=== PATIENT | female | born 1945 | race Two or more races ===

== ENCOUNTER 2018-08-25 15:22 | Inpatient (IN) | payer MEDICARE, OTHER ==
[~2018-08-25] VITALS: Ht 160 cm; Wt 53.1 kg
[2018-08-25] MEDS ORDERED: CARB1TAB21 PO (15:36)
[2018-08-25] MEDS ORDERED: MONT10TA22 PO (15:36)
[2018-08-25] MEDS ORDERED: GABA600T12 PO (15:36)
[2018-08-25] MEDS ORDERED: GABA-534 PO (15:36)
[2018-08-25] MEDS ORDERED: ACETAMINOPHEN 325 MG TABLET PO ONE (15:45)
[2018-08-25 15:58] LABS: BASOPHILS % (AUTO) 0.3 % (0.0-2.0); EOSINOPHILS % (AUTO) 0.3 % (0.0-7.0); HEMATOCRIT 37.9 % (31.2-41.9); HEMOGLOBIN 12.7 g/dL (10.9-14.3); LYMPHOCYTES # (AUTO) 1.4 K/uL (20.0-40.0); LYMPHOCYTES % (AUTO) 9.8 % (20.5-51.5); MEAN CORPUSCULAR HEMOGLOBIN 31.1 uug (24.7-32.8); MEAN CORPUSCULAR HGB CONC 34 g/dL (32.3-35.6); MEAN CORPUSCULAR VOLUME 92.9 fL (75.5-95.3); MONOCYTES # (AUTO) 1.6 K/uL (2.0-10.0); MONOCYTES % (AUTO) 11.4 % (0.0-11.0); NEUTROPHILS % (AUTO) 78.2 % (38.5-71.5); PLATELET COUNT (AUTO) 216 K/uL (179-408); RED BLOOD CELL COUNT(AUTO) 4.09 MIL/uL (3.63-4.92); WHITE BLOOD COUNT (AUTO) 14.1 K/uL (3.8-11.8)
[2018-08-25] MEDS ORDERED: ACETAMINOPHEN 325 MG TABLET ONE (16:02)
[2018-08-25 16:10] LABS: CARBON DIOXIDE 28 mmol/L (21-32); CHLORIDE 102 mmol/L (98-107); CREATININE 0.9 mg/dL (0.6-1.3); GLUCOSE 108 mg/dL (74-106); POTASSIUM 3.5 mmol/L (3.5-5.1); UREA NITROGEN, BLOOD 15 mg/dL (7-18)
--- NOTE | 2018-08-25 16:10 | NUR ---
PT IS IN ROOM #1A. DR ARANDA EVALUATED THE PT.
[2018-08-25 16:16] LABS: ALANINE AMINOTRANSFERASE 28 U/L (14-59); ALKALINE PHOSPHATASE 94 U/L (50-136); ASPARTATE AMINOTRANSFERASE 28 U/L (15-37); BILIRUBIN,DIRECT 0.2 mg/dL (0.0-0.2); BILIRUBIN,TOTAL 0.7 mg/dL (0.2-1.0); TOTAL PROTEIN, SERUM 7.3 g/dL (6.4-8.2)
[2018-08-25 16:22] LABS: ACETAMINOPHEN < 10.0 ug/mL (10-30)
[2018-08-25 16:33] LABS: ETHANOL < 3 MG/DL (0-0)
[2018-08-25] MEDS ORDERED: ALBUTEROL SULFATE 2.5 MG/3 ML NEBU NEB ONE (16:45)
[2018-08-25] MEDS ORDERED: IPRATROPIUM BROMIDE 0.5 MG/2.5 ML NEBU NEB ONE (16:45)
[2018-08-25] MEDS ORDERED: IPRATROPIUM BROMIDE 0.5 MG/2.5 ML NEBU ONE (16:48)
[2018-08-25] MEDS ORDERED: ALBUTEROL SULFATE 2.5 MG/3 ML NEBU ONE (16:48)
[2018-08-25 17:07] LABS: LYMPHOCYTES % (MANUAL) 11 % (20-40); MONOCYTES % (MANUAL) 3 % (2-10); NEUTROPHILS % (MANUAL) 86 % (42-75)
[2018-08-25 17:29] LABS: *BILIRUBIN,URIN NEGATIVE (NEGATIVE); *BLOOD, URINE 2+ (NEGATIVE); *CLARITY,URINE SLIGHTLY CLOUDY (CLEAR); *COLOR,URINE DARK YELLOW (YELLOW); *KETONES,URINE TRACE (NEGATIVE); *UROBILINOGEN,URINE >=8.0 E.U./dl (NORMAL); LEUKOCYTE ESTERASE ,URINE NEGATIVE (NEGATIVE); NITRITE, URINE POSITIVE (NEGATIVE); UGLUCOSE NEGATIVE (NEGATIVE)
[2018-08-25] MEDS ORDERED: MONTELUKAST SODIUM 10 MG TABLET PO ONE (17:30)
[2018-08-25 17:34] LABS: BACTERIA,URINE 3 /HPF (NONE SEEN); SQUAMOUS EPITHELIAL CELL,UR MODERATE /HPF (NONE SEEN); WBC,URINE 0-3 /HPF (0-3)
[2018-08-25 17:41] LABS: *AMPHETAMINE, URINE NEGATIVE (NEGATIVE); *BARBITURATE, URINE NEGATIVE (NEGATIVE); *CANNABINOID, URINE NEGATIVE (NEGATIVE); *COCCAINE, URINE NEGATIVE (NEGATIVE); *OPIATE, URINE NEGATIVE (NEGATIVE); *PHENCYCLIDINE SCREEN,URINE NEGATIVE (NEGATIVE)
[2018-08-25] MEDS ORDERED: MONTELUKAST SODIUM 10 MG TABLET ONE (18:49)
--- NOTE | 2018-08-25 20:26 | NUR ---
REPORT WAS GIVEN TO MHU RN. PT WAS TRANSFERED TO ROOM #323.
--- NOTE | 2018-08-25 20:30 | NUR ---
Received patient awake, alert, oriented x 2, ambulatory with unsteady gait via gurney from ED. Patient transferred to hospital bed safely. Patient is on room air. No IV access noted. Patient admitted under Dr. Peck and Dr. Stone. Patient cooperative at the moment but complaining of cough and asking for medications. Patient unable to sign any paperwork. Noted with sitter at bedside for safety. All patient belongings accounted and taken to MHU while valuables was taken by nursing tree fruit and nut farming supervisor to be kept in the safe. Bed in low position, locked, side rails up for safety. Will continue to monitor.
[2018-08-25 21:00] VITALS: BP 126/96
--- NOTE | 2018-08-25 21:00 | NUR ---
Spoke with Dr. Lewis reagarding the patient's admission. Dr. Lewis ordered albuterol and atrovent nebulization as needed for patient.
[2018-08-25] MEDS ORDERED: MAG HYDROX/AL HYDROX/SIMETH 30 ML LIQUID UDC PO PRN (22:00)
[2018-08-25] MEDS ORDERED: MAGNESIUM HYDROXIDE 30 ML LIQUID UDC PO PRN (22:00)
[2018-08-25] MEDS ORDERED: ZOLPIDEM 5 MG TABLET PO PRN (22:00)
[2018-08-25] MEDS: ALBUTEROL SULFATE 2.5 MG/3 ML NEBU NEB PRN (22:40)
[2018-08-25] MEDS: IPRATROPIUM BROMIDE 0.5 MG/2.5 ML NEBU NEB PRN (22:40)
--- NOTE | 2018-08-26 05:58 | NUR ---
Patient slept well throughout the night. Not in any form of distress. No recurrence of difficulty breathing or severe coughing after treatment with nebulization. Still with sitter present at bedside for safety. will continue to monitor.
[2018-08-26 07:30] VITALS: BP 111/66
[2018-08-26] MEDS: GABAPENTIN 300 MG CAPSULE PO SCH ×2 (10:12→21:32)
[2018-08-26] MEDS: ESCITALOPRAM OXALATE 10 MG TABLET PO SCH (10:12)
[2018-08-26] MEDS: MONTELUKAST SODIUM 10 MG TABLET PO SCH (10:12)
[2018-08-26] MEDS: LORAZEPAM 1 MG TABLET PO PRN (10:12)
[2018-08-26] MEDS: CIPROFLOXACIN HCL 250 MG TABLET PO SCH ×2 (10:30→21:33)
[2018-08-26] MEDS: CARBIDOPA/LEVODOPA 25-100MG TABLET PO SCH ×2 (13:00→17:00)
[2018-08-26] MEDS ORDERED: QUETIAPINE FUMARATE 25 MG TABLET PO SCH (21:00)
[2018-08-26 21:22] VITALS: BP 120/69
[2018-08-26] MEDS: ACETAMINOPHEN 325 MG TABLET PO PRN (21:33)
--- NOTE | 2018-08-27 00:23 | NUR ---
GPS/NSG Patient with temp. 99.9, prn administered as ordered with effective outcome. Temp. @ 0020 98.4, will continue to monitor for safety and well being.
[2018-08-27 07:30] VITALS: BP 100/52
[2018-08-27] MEDS: ESCITALOPRAM OXALATE 10 MG TABLET PO SCH (08:42)
[2018-08-27] MEDS: GABAPENTIN 300 MG CAPSULE PO SCH ×2 (08:43→21:41)
[2018-08-27] MEDS: MONTELUKAST SODIUM 10 MG TABLET PO SCH (08:43)
[2018-08-27] MEDS: CARBIDOPA/LEVODOPA 25-100MG TABLET PO SCH ×3 (08:43→17:51)
[2018-08-27] MEDS: CIPROFLOXACIN HCL 250 MG TABLET PO SCH (08:44)
[2018-08-27] MEDS: LORAZEPAM 1 MG TABLET PO PRN (11:49)
[2018-08-27] MEDS: ACETAMINOPHEN 325 MG TABLET PO PRN (11:50)
--- NOTE | 2018-08-27 12:43 | NUR ---
Firearms report: limehouse worker completed and submitted a [employer] firearms report for a 5150 DTO certification.
[2018-08-27] MEDS: AMOXICILLIN-CLAVUL 500-125MG TABLET PO SCH ×2 (15:45→21:41)
[2018-08-27 16:00] VITALS: BP 109/63
--- NOTE | 2018-08-27 16:12 | NUR ---
Initial Discharge Note: Patient is a 73 year old female who recently was placed at [facility] [[address] [place] [address]; ] Assisted Living. Per patient she would like to return when ready. drywall worker called and spoke with accounting administrator, Janeth, at facility who states that patient could benefit from further stabilization at a custodial placement prior to returning to [facility]. drywall worker will follow-up with patient [facility] psychosocial rehabilitation counselor, Kori Thakur [ ] and patient machine inker/"cousin", Hannah Rivas [ ]. drywall worker will continue to collaborate with patient and MD on a safe and proper discharge.
[2018-08-27 20:00] VITALS: BP 111/58
[2018-08-27] MEDS: GUAIFENESIN/DEXTROMETHORPHAN 5 ML UDC PO PRN (20:45)
[2018-08-27] MEDS: QUETIAPINE FUMARATE 25 MG TABLET PO SCH (21:41)
[2018-08-28 07:30] VITALS: BP 114/60
--- NOTE | 2018-08-28 07:32 | NUR ---
PATIENT SLEPT FOR APPROX 6 HRS THROUGH THE NIGHT. CONTINUE NEEDY, PRESSURED SPEECH. SHE IS ABLE TO COMPLY WITH MEDICATION REGIMENT DIET AND PLAN OF CARE. WILL CONTINUE TO MONITOR.
[2018-08-28] MEDS: ESCITALOPRAM OXALATE 10 MG TABLET PO SCH (09:54)
[2018-08-28] MEDS: GABAPENTIN 300 MG CAPSULE PO SCH ×2 (09:54→20:56)
[2018-08-28] MEDS: MONTELUKAST SODIUM 10 MG TABLET PO SCH (09:54)
[2018-08-28] MEDS: AMOXICILLIN-CLAVUL 500-125MG TABLET PO SCH ×2 (09:55→20:55)
[2018-08-28] MEDS: CARBIDOPA/LEVODOPA 25-100MG TABLET PO SCH ×3 (09:55→18:16)
[2018-08-28] MEDS: GUAIFENESIN/DEXTROMETHORPHAN 5 ML UDC PO PRN ×2 (13:59→21:09)
[2018-08-28 20:12] VITALS: BP 122/69
[2018-08-28] MEDS: QUETIAPINE FUMARATE 25 MG TABLET PO SCH (20:55)
--- NOTE | 2018-08-28 21:10 | NUR ---
patient c/o cough. Robitussin 5 ml po given per patient requested.
--- NOTE | 2018-08-28 22:10 | NUR ---
gps; patient resting quitly. no more cough noted. prn effective.
--- NOTE | 2018-08-29 05:46 | NUR ---
GPS: Patient slept 8:30 HRS throughout the night.not c/o sob at this time. Robitussin effective for cough. resting in bed comfortably. assisted to use bathroom. patient uses w/c to move around. will continue to monitor.
--- NOTE | 2018-08-29 06:27 | NUR ---
GPS: REFUSED AM LAB. CHARGE NURSE AWARE.
[2018-08-29 07:30] VITALS: BP 102/53
[2018-08-29] MEDS: GABAPENTIN 300 MG CAPSULE PO SCH ×2 (08:50→21:56)
[2018-08-29] MEDS: ESCITALOPRAM OXALATE 10 MG TABLET PO SCH (08:50)
[2018-08-29] MEDS: MONTELUKAST SODIUM 10 MG TABLET PO SCH (08:50)
[2018-08-29] MEDS: CARBIDOPA/LEVODOPA 25-100MG TABLET PO SCH ×3 (08:51→16:34)
[2018-08-29] MEDS: AMOXICILLIN-CLAVUL 500-125MG TABLET PO SCH ×2 (08:51→21:56)
[2018-08-29] MEDS: GUAIFENESIN/DEXTROMETHORPHAN 5 ML UDC PO PRN (10:44)
[2018-08-29] MEDS: LORAZEPAM 1 MG TABLET PO PRN (14:22)
[2018-08-29 16:53] VITALS: BP 110/60
--- NOTE | 2018-08-29 17:59 | NUR ---
RECEIVED PATIENT ALERT, ORIENTED X 2-3, PATIENT ABLE TO COMMUNICATE HER NEEDS TO THE STAFF, PATIENT COMPLIANT TO MEDICINE, TOOK SHOWER, DENIES PAIN , NO SOB NO DISCOMFORT NOTED, PATIENT KEPT SAFE AT ALL TIMES, NON SKID SOCKS WORN AT ALL TIMES, WILL CONTINUE TO MONITOR
[2018-08-29 20:10] VITALS: BP 124/70
[2018-08-29] MEDS: QUETIAPINE FUMARATE 25 MG TABLET PO SCH (21:56)
[2018-08-30 07:30] VITALS: BP 119/66
--- NOTE | 2018-08-30 07:44 | NUR ---
SBAR report received,pt. A/A/Ox1 ,no s/s of distress or pain noted. was reported per building associate, that pt.refuse to draw blood,went to ask pt.-pt.still refusing says -"No more blood."
[2018-08-30] MEDS: GABAPENTIN 300 MG CAPSULE PO SCH ×2 (09:14→20:41)
[2018-08-30] MEDS: CARBIDOPA/LEVODOPA 25-100MG TABLET PO SCH ×3 (09:15→17:20)
[2018-08-30] MEDS: ESCITALOPRAM OXALATE 10 MG TABLET PO SCH (09:15)
[2018-08-30] MEDS: MONTELUKAST SODIUM 10 MG TABLET PO SCH (09:15)
[2018-08-30] MEDS: AMOXICILLIN-CLAVUL 500-125MG TABLET PO SCH ×2 (09:15→20:43)
[2018-08-30 16:32] VITALS: BP 116/71
[2018-08-30 20:11] VITALS: BP 126/66
[2018-08-30] MEDS: QUETIAPINE FUMARATE 25 MG TABLET PO SCH (20:41)
[2018-08-30] MEDS: GUAIFENESIN/DEXTROMETHORPHAN 5 ML UDC PO PRN (23:00)
--- NOTE | 2018-08-31 06:41 | NUR ---
Patient remained calm and cooperative. Patient is continent with minimal assist. Patient complained of cough. PRN Robitussin given at 2300 and effective. Patient slept 7.0 hours. Patient resting in bed comfortably at this time. Continue plan of care.
[2018-08-31 07:30] VITALS: BP 97/47
[2018-08-31] MEDS: ESCITALOPRAM OXALATE 10 MG TABLET PO SCH (08:51)
[2018-08-31] MEDS: MONTELUKAST SODIUM 10 MG TABLET PO SCH (08:51)
[2018-08-31] MEDS: GABAPENTIN 300 MG CAPSULE PO SCH ×2 (08:51→21:10)
[2018-08-31] MEDS: CARBIDOPA/LEVODOPA 25-100MG TABLET PO SCH ×3 (08:53→16:56)
[2018-08-31] MEDS: AMOXICILLIN-CLAVUL 500-125MG TABLET PO SCH ×2 (08:54→21:10)
--- NOTE | 2018-08-31 09:38 | NUR ---
Discharge planning: precision printing worker called and spoke with patient [facility] director of casework department, Kori López [[phone]], regarding patient placement. Per Kori, she is not the director of casework department for patient. Kori suggested this sheet writer send an e-mail to her secure e-mail [[email or web address]] with patient name so that she can forward it to her shipwright supervisor. Per Kori, her shipwright supervisor will call this sheet writer back with correct case management information. precision printing worker will continue to follow-up as needed.
--- NOTE | 2018-08-31 09:58 | NUR ---
Discharge planning: garbage worker faxed SNF inquiry to [facility] [[address], [place] [address]; ; Contact: Melody]. garbage worker awaiting call back from Melody, substance abuse prevention coordinator. Addendum: 08/31/18 at 1205 by VALERIE AVALOS garbage worker received return phone call from Melody, substance abuse prevention coordinator, stating facility is unable to accept patient due to "no female bed availability" and "patient aggression". garbage worker will follow-up with
--- NOTE | 2018-08-31 10:00 | NUR ---
AMBULATORY WITH FRONT WHEEL WALKER COMPLIANT WITH MEDICATIONS AND CARE.WILL CONTINUE TO OBSERVE AND PROVIDE SAFE AND THERAPEUTIC ENVIRONMENT AT ALL TIMES
--- NOTE | 2018-08-31 15:36 | NUR ---
Discharge planning: lead worker of housekeeping and laundry faxed SNF inquiry to [facility] [[address], [place] [address]; ] lead worker of housekeeping and laundry received confirmation of acceptance from SEBASTIEN, admissions teacher visually impaired, who states they can accept the patient when ready for discharge.
[2018-08-31 15:57] VITALS: BP 113/71
--- NOTE | 2018-08-31 18:00 | NUR ---
EATING DINNER IN HER ROOM COMPLIANT WITH CARE AND MEDICATIONS.
[2018-08-31 20:00] VITALS: BP 106/66
[2018-08-31] MEDS: QUETIAPINE FUMARATE 25 MG TABLET PO SCH (21:11)
[2018-09-01 07:30] VITALS: BP 113/68
[2018-09-01] MEDS: ESCITALOPRAM OXALATE 10 MG TABLET PO SCH (08:53)
[2018-09-01] MEDS: MONTELUKAST SODIUM 10 MG TABLET PO SCH (08:53)
[2018-09-01] MEDS: CARBIDOPA/LEVODOPA 25-100MG TABLET PO SCH ×3 (08:53→16:22)
[2018-09-01] MEDS: GABAPENTIN 300 MG CAPSULE PO SCH ×2 (08:53→20:20)
[2018-09-01] MEDS: AMOXICILLIN-CLAVUL 500-125MG TABLET PO SCH ×2 (08:54→20:20)
[2018-09-01 11:06] LABS: BASOPHILS # (AUTO) 0.1 K/uL (0.0-8.0); BASOPHILS % (AUTO) 1.2 % (0.0-2.0); EOSINOPHILS # (AUTO) 0.1 K/uL (0.0-0.7); EOSINOPHILS % (AUTO) 1.7 % (0.0-7.0); HEMATOCRIT 38.2 % (31.2-41.9); HEMOGLOBIN 12.6 g/dL (10.9-14.3); LYMPHOCYTES # (AUTO) 1.5 K/uL (20.0-40.0); LYMPHOCYTES % (AUTO) 17.7 % (20.5-51.5); MEAN CORPUSCULAR HEMOGLOBIN 30.9 uug (24.7-32.8); MEAN CORPUSCULAR HGB CONC 33 g/dL (32.3-35.6); MEAN CORPUSCULAR VOLUME 93.6 fL (75.5-95.3); MONOCYTES # (AUTO) 0.7 K/uL (2.0-10.0); NEUTROPHILS # (AUTO) 6.1 K/uL (1.8-8.9); NEUTROPHILS % (AUTO) 71.4 % (38.5-71.5); PLATELET COUNT (AUTO) 370 K/uL (179-408); RED BLOOD CELL COUNT(AUTO) 4.08 MIL/uL (3.63-4.92); WHITE BLOOD COUNT (AUTO) 8.5 K/uL (3.8-11.8)
[2018-09-01 11:18] LABS: ALANINE AMINOTRANSFERASE 43 U/L (14-59); ALKALINE PHOSPHATASE 83 U/L (50-136); ASPARTATE AMINOTRANSFERASE 29 U/L (15-37); BILIRUBIN,TOTAL 0.1 mg/dL (0.2-1.0); CARBON DIOXIDE 29 mmol/L (21-32); CHLORIDE 103 mmol/L (98-107); CREATININE 0.9 mg/dL (0.6-1.3); GLUCOSE 114 mg/dL (74-106); MAGNESIUM 2.1 mg/dL (1.8-2.4); PHOSPHOROUS 3.7 mg/dL (2.5-4.9); POTASSIUM 3.9 mmol/L (3.5-5.1); TOTAL PROTEIN, SERUM 7.5 g/dL (6.4-8.2); UREA NITROGEN, BLOOD 15 mg/dL (7-18)
[2018-09-01 15:35] VITALS: BP 129/60
--- NOTE | 2018-09-01 15:48 | NUR ---
PATIENT TRANSFERED TO ROOM 319 A PSYCH OVER FLOW WILL CONTINUE UNDER THE CARE OF DR MORIN. PATIENT IS ALERT BUT FORGETFUL AND CONFUSED AT TIMES ABLE TO AMBULATE WITH THE FRONT WHEEL WALKER WITH SLOW STEADY GAIT.PATIENTS BELONGINGS REMAIN HERE IN THE MENTAL HEALTH CALLED AND REPORT GIVEN TO RANGE CONSERVATIONIST FOR CONTINUING CARE PATIENT AWARE AND ACCEPTED THE MOVE WAS TAKEN BY A ENVIRONMENTAL CHANGE ANALYST WHO WILL BE HER SITTER IN SATISFACTORY CONDITION.
--- NOTE | 2018-09-01 15:50 | NUR ---
Received this transfer, patient as an overflow from MHU, per wheelchair, with 1:1 sitter. Alert oriented x 3, calm and cooperative. Belongings check by sitter. Transferred to bed comfortably
--- NOTE | 2018-09-01 17:08 | NUR ---
Report given to Faizan. Endorsed for further care
--- NOTE | 2018-09-01 17:35 | NUR ---
received patient awake sitting on her wheelchair, denies pain no sob no discomfort on 1:1 sitter for safety, kept comfortable at all time
[2018-09-01] MEDS: GUAIFENESIN/DEXTROMETHORPHAN 5 ML UDC PO PRN (18:27)
--- NOTE | 2018-09-01 19:20 | NUR ---
Rec'd pt up in her w/c watching TV. No s/s of acute distress noted. A&Ox4, citizen [place] speaking, able to communicate needs in basic upper sorbian. 1:1 sitter at bedside for safety. On 14D hold up 5/3 for GD and DTO. No behavior of attempting to bite staff or hurt staff at this time. Cooperative with plan of care at this time. All safety precautions in place. Will cont to monitor.
[2018-09-01 20:00] VITALS: BP 116/60
[2018-09-01] MEDS: QUETIAPINE FUMARATE 25 MG TABLET PO SCH (20:20)
--- NOTE | 2018-09-02 05:47 | NUR ---
Pt slept x7hrs during shift. No behavioral episode during shift. All safety precautions in place. Will cont to monitor.
[2018-09-02 07:33] VITALS: BP 105/54
[2018-09-02] MEDS: CARBIDOPA/LEVODOPA 25-100MG TABLET PO SCH ×3 (08:00→16:15)
[2018-09-02] MEDS: ESCITALOPRAM OXALATE 10 MG TABLET PO SCH (08:00)
[2018-09-02] MEDS: MONTELUKAST SODIUM 10 MG TABLET PO SCH (08:00)
[2018-09-02] MEDS: GABAPENTIN 300 MG CAPSULE PO SCH ×2 (08:01→20:11)
[2018-09-02 15:12] VITALS: BP 104/51
--- NOTE | 2018-09-02 16:53 | NUR ---
Discharge planning: Per [facility] [[address] [facility], [place] [address]; ] prevention coordinator, Janeth, patient will need SNF placement prior to returning to assisted living. concession worker received phone call from Melody prevention coordinator[facility] [[address] [place] [address]; ], stating that patient will be accepted upon discharge. Per Hector, director of web marketing, patient will be accepted to bed 22A. concession worker to follow-up with facility when patient ready for discharge.
--- NOTE | 2018-09-02 19:54 | NUR ---
Rec'd pt up in w/c awake watching TV. A&Ox4. No s/s of acute distress noted. No behavioral episode reported for dayshift. 1:1 sitter at bedside for safety. All safety precautions in place. Will cont to monitor.
[2018-09-02 20:00] VITALS: BP 128/63
[2018-09-02] MEDS: QUETIAPINE FUMARATE 25 MG TABLET PO SCH (20:11)
[2018-09-02] MEDS: IPRATROPIUM BROMIDE 0.5 MG/2.5 ML NEBU NEB PRN (22:11)
[2018-09-02] MEDS: ALBUTEROL SULFATE 2.5 MG/3 ML NEBU NEB PRN (22:11)
--- NOTE | 2018-09-03 06:47 | NUR ---
Pt in bed asleep. 1:1 sitter at bedside for safety. Noted with intermittent restlessness during the night. Slept x4 hrs. Offered Ativan PRN but preferred not to take anything. No further episode of shortness of breath. All due meds given and zully well. All needs met. Safety precautions in place. Will endorse to oncoming shift.
[2018-09-03 07:22] VITALS: BP 116/59
[2018-09-03] MEDS: GABAPENTIN 300 MG CAPSULE PO SCH (08:05)
[2018-09-03] MEDS: ESCITALOPRAM OXALATE 10 MG TABLET PO SCH (08:05)
[2018-09-03] MEDS: MONTELUKAST SODIUM 10 MG TABLET PO SCH (08:05)
[2018-09-03] MEDS: CARBIDOPA/LEVODOPA 25-100MG TABLET PO SCH ×2 (08:05→12:27)
--- NOTE | 2018-09-03 10:01 | NUR ---
DC NOTE: Patient will be discharged to [facility] [[address] [place] [address]; ] and transportation will be provided by ambulance at 1:00pm. Please arrange ambulance transportation for patient. nutrition worker called and spoke with Melody, dental scheduling coordinator, who states they are ready to accept the patient today. Patient is AxOx3, denies suicidal ideations, and is able to plan for basic self-care needs. Patient will be followed by Dr. Stone [threader operator] and a psychiatrist at the facility. Per Melody, she will call this designer/writer back with name of psychiatrist. Patient was provided with mental health resources including [facility] Line [ ], Sarah Clarke [ ], and National Suicide Prevention Lifeline [ ]. Addendum: 09/03/18 at 1421 by VALERIE AVALOS Patient will be followed by Dr. Gamez [psychiatrist] at facility per dental scheduling coordinator, Melody.
[2018-09-03] MEDS: LORAZEPAM 1 MG TABLET PO PRN (12:27)
--- NOTE | 2018-09-03 15:33 | NUR ---
d/c orders received noted and carried out,d/c instruction and rn report given to [facility] pt left the facility via ambulances in stable condition
== END 2018-09-03 15:30 | DRG 885 ==
LOC: ER 15:22 → GPSOV3 19:45 → GPS 08-26 06:32 → MEDSURG3 09-01 15:41 → GPSOV3 09-01 15:45
PROVIDERS: ADMIT Psychiatry & Neurology Psychiatry; ATTEND Internal Medicine Nephrology
DX: F39 Unspecified mood [affective] disorder (principal); F02.81 Dementia in other diseases classified elsewhere, unspecified severity, with behavioral disturbance; N39.0 Urinary tract infection, site not specified; G20 Parkinson's disease; J45.909 Unspecified asthma, uncomplicated; Z79.899 Other long term (current) drug therapy
CPT/HCPCS: 36415; 71045; 80307; 83735; 84100; 85025; 93005; 94640; 94664; 97110; 97112; 97116; 97530; A4663; G0480; G0480-TC; J3590